=== PATIENT | female | born 1975 | race Caucasian/White ===

== ENCOUNTER 2021-04-12 09:12 | Emergency (ER) | payer BC, OTHER ==
[~2021-04-12 09:12] MED LIST: COLACE100 MG PO; MACRODANTIN100 MG PO; MAGNESIUM CITR296 ML PO; ZOFRAN 4 MG TAB4 MG PO
[2021-04-12 10:58] LABS: HEMOGLOBIN 13.8 gm/dl (12.3-15.3); RED BLOOD COUNT 4.68 M/UL (4.00-5.10); WHITE BLOOD COUNT 14.1 K/UL (4.5-11.0)
[2021-04-12 11:20] LABS: BUN/CREATININE RATIO 23 (0-10)
[2021-04-12] MEDS ORDERED: ZOFRAN4 MG PO (11:35)
== END 2021-04-12 19:15 | disposition home or self-care (01) ==
LOC: ER1 09:12
PROVIDERS: Physician Assistant
DX: K59.00 Constipation, unspecified (principal); F17.290 Nicotine dependence, other tobacco product, uncomplicated; Z90.49 Acquired absence of other specified parts of digestive tract
CPT/HCPCS: 74018; 80053; 81001; 84703; 85025; 96374; 99284; J2405